=== PATIENT | male | born 1940 | race Caucasian/White ===

== ENCOUNTER → 2018-04-25 | Outpatient (CLI) | payer OTHER ==
[~2018-04-25] MED LIST: CELEBREX100 MG PO
== END | disposition home or self-care (01) ==
LOC: RAD 12:10
DX: M17.11 Unilateral primary osteoarthritis, right knee (principal)

== ENCOUNTER 2018-05-19 16:25 | Outpatient (CLI) | payer OTHER | END 2018-05-19 16:39 | disposition home or self-care (01) | LOC: RAD 16:25 | DX: I11.9 Hypertensive heart disease without heart failure (principal) ==

== ENCOUNTER 2018-09-14 10:57 | Outpatient (CLI) | payer OTHER | END 2018-09-14 16:39 | disposition home or self-care (01) | LOC: RAD 10:57 | DX: Z96.651 Presence of right artificial knee joint (principal) ==

== ENCOUNTER → 2019-01-30 | Outpatient (CLI) | payer OTHER | END | disposition home or self-care (01) | LOC: RAD 13:33 | DX: J20.8 Acute bronchitis due to other specified organisms (principal) ==

== ENCOUNTER 2019-02-09 14:04 | Outpatient (CLI) | payer OTHER | END 2019-02-09 14:10 | disposition home or self-care (01) | LOC: TOM 14:04 | DX: J84.9 Interstitial pulmonary disease, unspecified (principal) ==

== ENCOUNTER 2019-08-14 10:50 | Outpatient (CLI) | payer OTHER | END 2019-08-14 10:54 | disposition home or self-care (01) | LOC: SONOGRAMA 10:50 → MAMO-SONO 11:15 | DX: M19.041 Primary osteoarthritis, right hand (principal); M19.042 Primary osteoarthritis, left hand; M25.511 Pain in right shoulder ==

== ENCOUNTER 2019-12-30 17:13 | Inpatient (IN) | payer OTHER ==
[~2019-12-30] VITALS: Ht 175.3 cm; Wt 44.0 kg
== END 2020-01-02 17:21 | disposition designated cancer center or children's hospital (05) | DRG 282 ==
LOC: ER 17:13 → ICU-2 22:54
PROVIDERS: ADMIT Internal Medicine; ATTEND Internal Medicine
PROC: B246ZZZ Ultrasonography of Right and Left Heart (ICD-10-PCS; principal; 2019-12-31)
DX: I21.4 Non-ST elevation (NSTEMI) myocardial infarction (principal); I24.9 Acute ischemic heart disease, unspecified; I11.9 Hypertensive heart disease without heart failure

== ENCOUNTER 2020-02-23 11:33 | Outpatient (CLI) | payer OTHER | END 2020-02-23 11:50 | disposition home or self-care (01) | LOC: RAD 11:33 | PROVIDERS: ATTEND Internal Medicine Rheumatology | DX: M15.0 Primary generalized (osteo)arthritis (principal); M05.79 Rheumatoid arthritis with rheumatoid factor of multiple sites without organ or systems involvement ==

== ENCOUNTER 2020-05-05 13:06 | Outpatient (CLI) | payer OTHER | END 2020-05-05 13:18 | disposition home or self-care (01) | LOC: NUCLEAR 13:06 | DX: M81.0 Age-related osteoporosis without current pathological fracture (principal); E21.0 Primary hyperparathyroidism ==

== ENCOUNTER 2020-08-12 11:17 | Outpatient (CLI) | payer OTHER | END 2020-08-12 15:55 | disposition home or self-care (01) | LOC: PPH VACUNA 11:17 | PROVIDERS: ATTEND Emergency Medicine Pediatric Emergency Medicine | DX: Z23 Encounter for immunization (principal) ==

== ENCOUNTER → 2020-09-02 | Outpatient (CLI) | payer OTHER | END | disposition home or self-care (01) | LOC: PPH VACUNA | PROVIDERS: ATTEND Emergency Medicine Pediatric Emergency Medicine | DX: Z23 Encounter for immunization (principal) ==

== ENCOUNTER → 2021-04-23 08:00 | Outpatient (CLI) | payer OTHER | END | disposition home or self-care (01) | LOC: PPH VACUNA 08:00 | PROVIDERS: ATTEND Emergency Medicine Pediatric Emergency Medicine | DX: Z23 Encounter for immunization (principal) ==

== ENCOUNTER 2021-11-10 14:24 | Outpatient (CLI) | payer OTHER | END 2021-11-10 14:30 | disposition home or self-care (01) | LOC: RAD 14:24 | PROVIDERS: ATTEND Orthopaedic Surgery | DX: M19.031 Primary osteoarthritis, right wrist (principal); M19.032 Primary osteoarthritis, left wrist ==

== ENCOUNTER → 2021-11-12 11:33 | Outpatient (CLI) | payer OTHER | END | disposition home or self-care (01) | LOC: NUCLEAR 11:15 | PROVIDERS: ATTEND Student in an Organized Health Care Education/Training Program | DX: M81.0 Age-related osteoporosis without current pathological fracture (principal) ==

== ENCOUNTER 2022-11-12 11:14 | Outpatient (CLI) | payer OTHER | END 2022-11-12 11:18 | disposition home or self-care (01) | LOC: RAD 11:14 | PROVIDERS: ATTEND Orthopaedic Surgery Adult Reconstructive Orthopaedic Surgery | DX: Z96.653 Presence of artificial knee joint, bilateral (principal) ==

== ENCOUNTER 2024-03-20 13:13 | Outpatient (CLI) | payer OTHER ==
[~2024-03-20 13:13] MED LIST changes: +ELIQUIS2.5 MG; +FARXIGA5 MG; +LASIX20 MG; +LIPITOR40 M1; +TRAM1TAB98 PO; +ZANAFLEX2 M1 PO
== END 2024-03-20 13:21 | disposition home or self-care (01) ==
LOC: RAD 13:13
PROVIDERS: ATTEND Internal Medicine Cardiovascular Disease
DX: I48.91 Unspecified atrial fibrillation (principal); I10 Essential (primary) hypertension; M24.541 Contracture, right hand

== ENCOUNTER 2024-04-05 08:05 | Outpatient (CLI) | payer OTHER | END 2024-04-05 08:06 | disposition home or self-care (01) | LOC: NUCLEAR 08:05 | PROVIDERS: ATTEND Urology | DX: C61 Malignant neoplasm of prostate (principal); R35.0 Frequency of micturition; N40.1 Benign prostatic hyperplasia with lower urinary tract symptoms | CPT/HCPCS: 78315; A9503 ==

== ENCOUNTER 2024-04-12 08:15 | Outpatient (CLI) | payer OTHER | END 2024-04-12 08:19 | disposition home or self-care (01) | LOC: TOM 08:15 | PROVIDERS: ATTEND Urology | DX: C61 Malignant neoplasm of prostate (principal); R35.0 Frequency of micturition; N40.1 Benign prostatic hyperplasia with lower urinary tract symptoms | CPT/HCPCS: 74178; Q9965 ==

== ENCOUNTER 2024-05-11 11:02 | Outpatient (CLI) | payer OTHER | END 2024-05-11 11:06 | disposition home or self-care (01) | LOC: RAD 11:02 | PROVIDERS: ATTEND Internal Medicine Pulmonary Disease | DX: J45.40 Moderate persistent asthma, uncomplicated (principal); R05.3 Chronic cough ==

== ENCOUNTER 2024-08-02 14:53 | Outpatient (CLI) | payer OTHER | END 2024-08-02 15:30 | disposition home or self-care (01) | LOC: SONOGRAMA 14:53 | PROVIDERS: ATTEND Internal Medicine Cardiovascular Disease | DX: D17.9 Benign lipomatous neoplasm, unspecified (principal) ==

== ENCOUNTER 2025-03-12 16:16 | Outpatient (CLI) | payer OTHER | END 2025-03-12 16:22 | disposition home or self-care (01) | LOC: TOM 16:16 | PROVIDERS: ATTEND Internal Medicine Pulmonary Disease | DX: R06.02 Shortness of breath (principal); R05.3 Chronic cough ==

== ENCOUNTER 2025-03-28 09:39 | Outpatient (CLI) | payer OTHER | END 2025-03-28 09:42 | disposition home or self-care (01) | LOC: RAD 09:39 | PROVIDERS: ATTEND Internal Medicine Pulmonary Disease | DX: R05.3 Chronic cough (principal); J15.9 Unspecified bacterial pneumonia ==

== ENCOUNTER 2025-07-23 15:04 | Outpatient (CLI) | payer OTHER | END 2025-07-23 15:06 | disposition home or self-care (01) | LOC: RAD 15:04 | DX: M54.50 Low back pain, unspecified (principal); M25.512 Pain in left shoulder ==